=== PATIENT | female | born 1980 | race Caucasian/White ===

== ENCOUNTER 2021-01-30 22:01 | Emergency (ER) | payer BC, SELFPAY ==
[2021-01-30 22:26] VITALS: BP 133/81; PULSE 111; RESP 18; TEMP 36.6; O2SAT 98; BMI 24.9
== END 2021-01-30 23:38 | disposition left against medical advice (07) ==
PROVIDERS: Emergency Provider Emergency Medicine
DX: M54.9 Dorsalgia, unspecified (principal)
CPT/HCPCS: 99281; 99282

== ENCOUNTER 2023-08-15 15:12 | Emergency (ER) | payer BC, SELFPAY ==
--- NOTE | ~2023-08-15 | XR_ITS ---
Exams: Right tib-fib 2 views and right knee 4 views HISTORY: Pain. COMPARISON: 02/10/2016 FINDINGS: Right knee arthroplasty changes appears intact since baseline without evidence of any hardware failure. No periprosthetic loosening or fracture noted. No effusion grossly. The patella is very low in position consistent with patella baja. There is overlying soft tissue swelling. This could be indicative of a soft tissue injury. XR/XR knee RT 4V IMPRESSION: No evidence of any hardware failure. Patella baja with overlying soft tissue swelling. This could be indicative of soft tissue injury. Recommend correlation with physical findings and consider further imaging is warranted to exclude a quadriceps tendon injury.
--- NOTE | ~2023-08-15 | XR_ITS ---
Exams: Right tib-fib 2 views and right knee 4 views HISTORY: Pain. COMPARISON: 02/10/2016 FINDINGS: Right knee arthroplasty changes appears intact since baseline without evidence of any hardware failure. No periprosthetic loosening or fracture noted. No effusion grossly. The patella is very low in position consistent with patella baja. There is overlying soft tissue swelling. This could be indicative of a soft tissue injury. XR/XR tibia fibula RT 2V IMPRESSION: No evidence of any hardware failure. Patella baja with overlying soft tissue swelling. This could be indicative of soft tissue injury. Recommend correlation with physical findings and consider further imaging is warranted to exclude a quadriceps tendon injury.
[2023-08-15 15:14] VITALS: BP 128/62; PULSE 116; RESP 20; TEMP 36.6; O2SAT 99; BMI 23.4
--- NOTE | 2023-08-15 15:17 | ED.GENADULT ---
HPI - General Adult General Chief complaint: Extremity Injury, Lower Stated complaint: fell today/left knee out of place Time Seen by Provider: 08/15/23 15:59 Source: patient Mode of arrival: ambulatory Limitations: no limitations History of Present Illness HPI narrative: Patient is a 43-year-old female who presents emergency department for evaluation of right knee pain after slip and fall in the snow. She reports a history of reconstructive surgery to the right knee in 2019. She states that since the fall she has had swelling and bruising over the kneecap with an abrasion and reported pain. Denies any numbness or tingling to the leg. She has been able to ambulate on the leg though it is painful. No head strike or loss of consciousness with this fall. Related Data Allergies Allergy/AdvReac Type Severity Reaction Status Date / Time Penicillins [PENICILLINS] Allergy Severe THROAT Verified 08/15/23 15:18 SWELLING morphine [MORPHINE] Allergy Unknown UNKNOWN, Verified 08/15/23 15:18 anaphylaxis penicillin V Allergy Unknown anaphylaxis Verified 08/15/23 15:18 Review of Systems Review of Systems: Yes all other systems are reviewed and are negative PMFSH Past Medical History Attestation statement: The following information was validated with the patient. Source: old records reviewed Surgical History S/P insertion of spinal cord stimulator Social History Social History Advance Directives: No Advance Directives Information Provided: No Physical Exam ED Vital Signs: Vital Signs - 24 hr 08/15/23 15:14 08/15/23 17:00 Temperature 98 F Pulse Rate 116 H 104 H Respiratory Rate 20 18 Blood Pressure 128/62 104/73 Pulse Oximetry 99 98 Oxygen Delivery Method Room Air Room Air BMI result Body Mass Index 23.4 Appearance: Alert.?Oriented to person, place and time. No acute distress.?Normal affect. Eyes: Pupils equal, round and reactive to light.? ENT: Pharynx normal.?? Neck: Normal inspection.? Neck supple.?? CVS: Heart sounds normal. Normal heart rate and rhythm.? Pulses normal.?? Respiratory: No respiratory distress.? Lung sounds clear to auscultation bilaterally?? Abdomen: Soft and non-tender. Normoactive bowel sounds. Skin: Skin warm and dry.? Normal skin color.? ?? Extremities: No lower extremity edema.? No calf ttp. Small right suprapatellar effusion with ecchymosis and superficial abrasion. No obvious deformity. No laxity upon examination. Anterior/posterior drawer test negative. Quadricep strength intact, no palpable deformities Neuro: Moves all extremities spontaneously. Sensation intact bilaterally. CNo focal neuro deficits. Ambulates with normal steady gait. Course Course Course Narrative: RME: 43 yold female presents to the ED for RIght knee pain after falling unto the ground today. has pmh of knee replacement. will xend for xray Medical Decision Making Medical Decision Making MDM Narrative: Patient is a 43-year-old female who presents emergency department for evaluation traumatic right knee pain after a mechanical slip and fall as per HPI. XR imaging was obtained which reveals no evidence of hardware failure, no fracture. Overlying soft tissue swelling of the patella. Extremities neurovascularly intact distally. She is ambulatory with a steady antalgic gait. Discussed rest, ice, compression, elevation, crutches, weightbear as tolerated. Strict return precautions. Outpatient follow-up with PCP/Orthopedics. All questions answered. Stable for discharge. Differential Diagnosis Differential Diagnoses: The differential diagnosis associated with the presentation includes (Strain, sprain, ligamentous injury, quadricep rupture, effusion, hardware dysfunction) Admission/Observation Consideration of admission/observation: Escalation of care including admission/observation considered Independent Interpretation I performed an independent interpretation of an: Plain X-Ray Radiology Impression Discussion of test interpretation with radiology: I have reviewed the radiologist's reading. Radiologist Impression: XR/XR knee RT 4V IMPRESSION: No evidence of any hardware failure. Patella baja with overlying soft tissue swelling. This could be indicative of soft tissue injury. Recommend correlation with physical findings and consider further imaging is warranted to exclude a quadriceps tendon injury. External Record Review External record reviewed: Outpatient record Prescription Management I considered prescription management with: Pain Medication Discharge Plan Discharge Clinical Impression: Knee sprain Patient Disposition: Home, Self-Care Instructions: Crutch Instructions (ED), How to Use an Elastic Bandage (ED), R.I.C.E. Treatment (ED) Additional Instructions: You can take ibuprofen 200 mg, 3 tablets (600mg) every 6-8 hours as needed for pain, in addition to Tylenol 500 mg, 2 tablets (1,000mg) every 4-6 hours as needed for pain, but not to exceed 3 doses daily (3,000mg).? Contact your primary care provider/orthopedic provider to arrange for outpatient follow-up for persistent symptoms. Return back to emergency department any new or worsening symptoms or concerns. Referrals: Physician,Unknown J [Primary Care Provider] - Discharge Date/Time: 08/15/23 17:17
[2023-08-15 17:00] VITALS: BP 104/73; PULSE 104; RESP 18; O2SAT 98
--- NOTE | 2023-08-15 17:12 | PC.NURSE ---
Patient reports did not need to wait for discharge paperwork because she had x ray results and crutches
== END 2023-08-15 17:17 | disposition home or self-care (01) ==
PROVIDERS: Emergency Provider Internal Medicine
DX: S83.91XA Sprain of unspecified site of right knee, initial encounter (principal); M25.561 Pain in right knee; M79.605 Pain in left leg; W00.0XXA Fall on same level due to ice and snow, initial encounter; Y93.9 Activity, unspecified; Y92.9 Unspecified place or not applicable; Y99.8 Other external cause status
CPT/HCPCS: 73564; 73590; 99282; 99283